=== PATIENT | female | born 1945 | race Hispanic/Latino ===

== ENCOUNTER 2018-01-03 13:45 | Emergency (ER) | payer MEDICARE ==
[2018-01-03 13:59] VITALS: RESP 18; O2SAT 97
--- NOTE | 2018-01-03 15:18 | RAD ---
HISTORY: cough COMPARISON: No prior. TECHNIQUE: Chest PA and lateral FINDINGS: LUNGS: Hyperinflated lungs. No active pulmonary disease. Scattered tiny nodular densities in the right upper lung. PLEURA: Flattened diaphragms. No significant pleural effusion identified. No pneumothorax apparent. CARDIOVASCULAR: Atherosclerotic aortic calcifications. Cardiomediastinal silhouette within normal limits. OSSEOUS STRUCTURES: Degenerative changes. VISUALIZED UPPER ABDOMEN: Normal. OTHER FINDINGS: None. IMPRESSION: No focal consolidation or pleural effusion. COPD. Scattered tiny nodular densities in the right upper lung. CT scan can be obtained for further evaluation on a nonemergent basis.
--- NOTE | 2018-01-03 16:07 | ED PDOC ---
Upper Extremity Pain/Injury Time Seen by Provider: 01/03/18 14:31 Chief Complaint (Nursing): Upper Extremity Problem/Injury Chief Complaint (Provider): Splint placement History Per: Patient, Family (daughter) History/Exam Limitations: no limitations Onset/Duration Of Symptoms: Days (x1) Current Symptoms Are (Timing): Still Present Additional Complaint(s): Aurora Ibarra is a 72 year old female, with a past medical history of COPD, CVA, hypercholesterolemia, dementia and HTN, who was brought to the emergency department by daughter for splint placement after patient removed it last night. Daughter at bedside reports on Tuesday patient fell, she was seen at [facility] on Tuesday and diagnosed with left elbow fracture. Patient was placed on splint and sent home with percocet, which she last took this morning with good relief of pain. Daughter states patient was uncomfortable last night while trying to sleep with splint and removed it. Of note, daughter also reports patient had a cough for the last x2 days which increased from baseline. Patient does have a history of COPD and currently smokes 6 cigarettes per day. However, she was concerned for infection because she was recently in the hospital for evaluation of her fracture. They deny any fever, chills, nausea, vomit, diarrhea, loss of sensation or numbness to extremities. No further medical complaints. PMD: Duncan Morillo Past Medical History Reviewed: Historical Data, Nursing Documentation, Vital Signs Vital Signs: Last Vital Signs Temp 98 F 01/03/18 13:56 Pulse 100 H 01/03/18 13:56 Resp 18 01/03/18 13:56 BP 169/75 H 01/03/18 13:56 Pulse Ox 97 01/03/18 13:56 - Medical History PMH: COPD, CVA, Dementia, HTN, Hypercholesterolemia - Surgical History Surgical History: Cholecystectomy Other surgeries: tubal ligation - Family History Family History: States: Unknown Family Hx - Social History Current smoker - smoking cessation education provided: Yes (6 cigarettes/day) Alcohol: None - Home Medications Home Medications: Ambulatory Orders Medication Instructions Recorded Aspirin [Aspirin Chewable] 81 mg PO DAILY 11/17/17 Atorvastatin PO HS 11/17/17 Donepezil [Aricept] 5 mg PO HS 11/17/17 Lisinopril [Zestril] 20 mg PO DAILY 11/17/17 oxyCODONE/Acetaminophen [Percocet 1 ea PO Q6 PRN #7 tab 01/02/18 5/325 mg Tab] - Allergies Allergies/Adverse Reactions: Allergies Allergy/AdvReac Type Severity Reaction Status Date / Time No Known Allergies Allergy Verified 11/17/17 08:08 Review of Systems ROS Statement: Except As Marked, All Systems Reviewed And Found Negative Constitutional: Negative for: Fever, Chills Respiratory: Positive for: Cough Gastrointestinal: Negative for: Nausea, Vomiting, Diarrhea Neurological: Negative for: Weakness, Numbness (left arm & hand) Physical Exam - Reviewed Nursing Documentation Reviewed: Yes Vital Signs Reviewed: Yes - Physical Exam Comments: GENERAL APPEARANCE: Patient is awake, alert, not toxic appearing, in no acute distress. SKIN: Warm, dry; (-) cyanosis; Abrasions to the chin and submental region. EYES: (-) conjunctival pallor, (-) icterus. ENMT: Airway patent, (-) stridor. Mucous membranes moist. NECK: Supple, FROM (-) stiffness, (-) meningismus, (-) lymphadenopathy. CHEST AND RESPIRATORY: Diminished breath sounds bilaterally (-) retractions, (- ) rales, (-) rhonchi, (-) wheezes; respirations even and nonlabored. HEART AND CARDIOVASCULAR: (-) irregularity; (-) murmur, (-) gallop. ABDOMEN AND GI: Soft; (-) tenderness; (-) distention, (-) guarding; (-) palpable mass. EXTREMITIES: (+) tenderness diffusely to left elbow, small effusion, decreased ROM secondary to pain, neurovascularly and sensation intact, Channel Marketing Coordinator strength equal ; Wrist and shoulder nontender (-) deformity; distal pulses are present. NEURO AND PSYCH: Mental status as above; Alert and orientedx3, cooperative. - ECG O2 Sat by Pulse Oximetry: 97 (RA) Pulse Ox Interpretation: Normal Medical Decision Making Medical Decision Making: Initial Impression: cough and splint placement s/p elbow fracture Initial Plan: --Chest two views (PA/LAT) [RAD] --Splint placement --XR elbow 2 views --Reevaluation Patient placed in long arm posterior splint applied by flight readiness technician. Placement and application verified by fiction and nonfiction writer prose, Arlet [place]. NV intact after placement. Patient also placed in sling. 15:16 CXR FINDINGS: LUNGS: Hyperinflated lungs. No active pulmonary disease. Scattered tiny nodular densities in the right upper lung. PLEURA: Flattened diaphragms. No significant pleural effusion identified. No pneumothorax apparent. CARDIOVASCULAR: Atherosclerotic aortic calcifications. Cardiomediastinal silhouette within normal limits. OSSEOUS STRUCTURES: Degenerative changes. VISUALIZED UPPER ABDOMEN: Normal. OTHER FINDINGS: None. IMPRESSION: No focal consolidation or pleural effusion. COPD. Scattered tiny nodular densities in the right upper lung. CT scan can be obtained for further evaluation on a nonemergent basis. XR elbow reviewed: (+) supracondylar fracture with no additional displacement from prior study on 01/02/18. On re-evaluation, patient reports improvement of symptoms. On exam, patient remains AAOx3, in no acute distress. Lungs clear to auscultation, cardiac RRR, abdomen soft, non-tender, repeat neuro exam shows no focal findings. Repeat BP: 105/79. Repeat HR: 87. VSS, stable for discharge. Lab/Diagnostic results d/w the patient in great detail. Diagnosis of cough, visit for splint placement s/p elbow fracture d/w the patient. Based on history, exam and diagnostic results, plan will be for outpatient follow up / inpatient admission / observation. Patient instructed to follow-up with pmd / referral provided / the clinic in 1- 2 days without fail. Advised to take medication as prescribed. Return to the emergency room at any time for any new or worsening symptoms. Patient states she fully agrees with and understands discharge instructions. States that she agrees with the plan and disposition. Verbalized and repeated discharge instructions and plan. I have given the patient opportunity to ask any additional questions. Scribe Attestation: Documented by Oh Gazra, acting as a scribe for Amada Nice PA-C Provider Scribe Attestation: All medical record entries made by the Scribe were at my direction and personally dictated by me. I have reviewed the chart and agree that the record accurately reflects my personal performance of the history, physical exam, medical decision making, and the department course for this patient. I have also personally directed, reviewed, and agree with the discharge instructions and disposition. Disposition - Clinical Impression Clinical Impression: Cough in adult, Elbow fracture, left, Orthopedic aftercare - Patient ED Disposition Is Patient to be Admitted: No Counseled Patient/Family Regarding: Studies Performed, Diagnosis, Need For Followup, Rx Given - Disposition Disposition: Routine/Home Disposition Time: 16:51 Condition: STABLE Additional Instructions: FOLLOW UP WITH ORTHO IN 1-2 DAYS FOR FURTHER EVALUATION. KEEP SPLINT DRY. RETURN IMMEDIATELY TO ED WITH ANY INCREASED PAIN OR LOSS OF SENSATION. Instructions: Cough, Adult (DC), Elbow Fracture (DC), How to Use a Shoulder Sling Forms: [facility] (Wallisian) Print Language: SRI LANKAN - POA Present On Arrival: Falls Or Trauma
[2018-01-03 16:25] VITALS: BP 105/79; PULSE 87; TEMP 98.4
--- NOTE | 2018-01-03 16:54 | RAD ---
PROCEDURE: Left elbow, two views HISTORY: concern for displacement, pt removed splint COMPARISON: None available TECHNIQUE: AP and lateral radiographs. FINDINGS: Examination is limited by overlying fiberglass splint material. Suspect nondisplaced supracondylar fracture. Further evaluation suggested. No other fracture identified. No dislocation. No evidence of arthritis. IMPRESSION: Limited examination. Suspected nondisplaced supracondylar fracture.
== END 2018-01-03 17:30 | disposition home or self-care (01) ==
LOC: H.ER 13:45
DX: Z47.89 Encounter for other orthopedic aftercare (principal); J44.9 Chronic obstructive pulmonary disease, unspecified